=== PATIENT | male | born 1965 | race Hispanic/Latino ===

== ENCOUNTER 2022-03-01 13:39 | Outpatient (CLI) | payer BC | END 2022-03-01 13:40 | disposition home or self-care (01) | LOC: SCSRAD 13:39 | PROVIDERS: ATTEND Chiropractor | DX: M54.50 Low back pain, unspecified (principal); M62.830 Muscle spasm of back; M47.817 Spondylosis without myelopathy or radiculopathy, lumbosacral region; M51.37 Other intervertebral disc degeneration, lumbosacral region | CPT/HCPCS: 72100 ==